=== PATIENT | female | born 1995 | race Caucasian/White ===

== ENCOUNTER 2016-05-19 15:28 | Emergency (ER) | payer OTHER | END 2016-05-19 19:10 | disposition home or self-care (01) | LOC: ER 15:28 | DX: O99.512 Diseases of the respiratory system complicating pregnancy, second trimester (principal); O99.332 Smoking (tobacco) complicating pregnancy, second trimester; Z3A.16 16 weeks gestation of pregnancy; J06.9 Acute upper respiratory infection, unspecified; F17.210 Nicotine dependence, cigarettes, uncomplicated | CPT/HCPCS: 87400; 99283 ==